=== PATIENT | female | born 1955 | race Caucasian/White ===

== ENCOUNTER 2020-03-04 11:40 | Outpatient (REF) | payer MEDICARE, MEDICAID, SELFPAY | END 2020-03-04 11:41 | disposition home or self-care (01) | LOC: HO.LAB 11:40 | PROVIDERS: Visit Provider Internal Medicine | DX: Z20.828 Contact with and (suspected) exposure to other viral communicable diseases (principal) | CPT/HCPCS: C9803; U0003 ==

== ENCOUNTER 2020-08-18 11:47 | Emergency (ER) | payer MEDICARE, MEDICAID, SELFPAY ==
[2020-08-18 12:13] VITALS: BP 159/86; PULSE 70; RESP 16; TEMP 36.6; O2SAT 97; BMI 24.2
[2020-08-18 12:38] LABS: Glucose Urine UA NEG (NEG); Leukocyte Esterase Urine NEG (NEG); Nitrite Urine NEG (NEG); PH 6.5 (5.0-8.0); Specific Gravity - Urine 1.015 (1.005-1.025); Urine Blood 1+ (NEG); Urine Ketones NEG (NEG); Urine Protein NEG (NEG-TRACE)
[2020-08-18 12:42] LABS: Appearance Urine CLEAR; Color Urine YELLOW
[2020-08-18 13:13] LABS: WBC Urine 0-2 /HPF (0-4)
[2020-08-18 13:14] LABS: Squamous Epithelial Cell Urine 2+ /LPF
== END 2020-08-18 19:08 | disposition left against medical advice (07) ==
PROVIDERS: Emergency Provider Emergency Medicine; PCP Family Medicine
DX: R10.9 Unspecified abdominal pain (principal)
CPT/HCPCS: 81001; 99283